=== PATIENT | female | born 1990 | race Hispanic/Latino ===

== ENCOUNTER 2017-12-23 20:57 | Emergency (ER) | payer BC ==
[2017-12-23 21:21] VITALS: BP 121/84; PULSE 65; RESP 16; TEMP 97.9; O2SAT 97
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
== END 2017-12-23 23:35 | disposition home or self-care (01) ==
LOC: H.ER 20:57
DX: S09.90XA Unspecified injury of head, initial encounter (principal); W22.8XXA Striking against or struck by other objects, initial encounter; Y92.89 Other specified places as the place of occurrence of the external cause

== ENCOUNTER 2017-12-24 10:49 | Emergency (ER) | payer BC ==
[2017-12-24 10:57] VITALS: O2SAT 98
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
[2017-12-24 13:13] VITALS: RESP 19
[2017-12-24 13:15] VITALS: PULSE 72; TEMP 97
[2017-12-24 13:31] VITALS: BP 126/70
== END 2017-12-24 13:13 | disposition home or self-care (01) ==
LOC: H.ER 10:49
DX: S06.0X0A Concussion without loss of consciousness, initial encounter (principal); R11.2 Nausea with vomiting, unspecified